=== PATIENT | female | born 1985 | race Hispanic/Latino ===

== ENCOUNTER → 2019-08-04 | Outpatient (CLI) | payer OTHER ==
[~2019-08-04] MED LIST: IOPAMIDOL 370 MG/ML 200 ML INFUS..BTL INJ ONE; SODIUM CHLORIDE 0.9% 50ML 50 ML ONE
--- NOTE | 2019-08-04 10:52 | Diagnostic Imaging Report ---
Exam: CT abdomen and pelvis Clinical history: Abdominal pain next Technique: Helical images of the abdomen and pelvis were obtained after IV contrast administration DOSE REDUCTION: The exams was performed according to the departmental dose-optimization program which includes automated exposure control, adjustment of the mA and/or kV according to patient size and/or use of iterative reconstruction technique. Findings: The lung bases are clear. There is no evidence of pleural effusion. The cardiac size is within normal limits. Multiple hypodense lesions are noted throughout the liver with the largest one in the lateral segment of the left hepatic lobe measuring 2.5 cm. Some of these lesions demonstrate peripheral enhancement which may represent hemangiomas. If indicated, dedicated CT with liver mass protocol or MR is recommended for further characterization. The spleen, pancreas, gallbladder, adrenal glands, and kidneys are unremarkable. The small and large bowels are normal in caliber without evidence of obstruction. The appendix was not clearly identified, however, no acute inflammatory changes are noted in the region of the cecum. The bladder, uterus, and ovaries are unremarkable. There is no evidence of lymphadenopathy or free fluid. The aorta and IVC are normal in caliber. Impression: 1. Multiple hypodense lesions throughout the liver measuring up to 2.5 cm in diameter. These may represent hemangiomas. CT or MR using liver mass protocol is recommended for further characterization. Signed by: Dr. Juan M Chapman MD on 08/04/2019 10:49 AM
== END ==
LOC: CT 07:51
PROVIDERS: ATTEND Internal Medicine Gastroenterology
DX: K92.1 Melena (principal)
CPT/HCPCS: 74177; 81025; Q9967

== ENCOUNTER → 2020-06-20 | Outpatient (CLI) | payer OTHER | LOC: MRI 11:27 | PROVIDERS: ATTEND Internal Medicine Gastroenterology | DX: Z01.812 Encounter for preprocedural laboratory examination (principal); Z20.822 Contact with and (suspected) exposure to COVID-19; R13.10 Dysphagia, unspecified; D18.09 Hemangioma of other sites | CPT/HCPCS: U0002 ==